=== PATIENT | female | born 1985 | race Two or more races ===

== ENCOUNTER 2023-04-11 22:14 | Outpatient (CLI) | payer OTHER ==
[2023-04-11] MEDS ORDERED: PRENATAL TABLE1 EAC1 (22:36)
[2023-04-11] MEDS ORDERED: ASPIRIN REGIMEN81 MG PO (22:37)
[2023-04-11 23:29] LABS: HEMATOCRIT 28.8 % (36.0-45.00); HEMOGLOBIN 9.7 g/dL (12.0-15.00); MEAN CELL VOLUME 92.9 fL (80.00-100.00); MEAN CORPUSCULAR HEMOGLOBIN 31.2 pg (27.00-32.0); MEAN CORPUSCULAR HGB CONC 33.6 g/dl (32.0-36.0); PLATELET COUNT 216 K/uL (150-450); RED CELL DISTRIBUTION WIDTH 12.6 % (11.5-14.5)
[2023-04-11 23:33] LABS: URINE APPEARANCE Clear; URINE BILIRRUBIN Negative (NEGATIVE); URINE BLOOD Negative; URINE COLOR Yellow; URINE GLUCOSE Negative (NEGATIVE); URINE LEUKOCYTE Negative; URINE NITRATE Negative; URINE PROTEIN Negative (NEGATIVE); URINE UROBILINOGEN 0.2 E.U./dl
[2023-04-11 23:42] LABS: URINE BACTERIA 2.5 uL (0.0-1933); URINE EPITHELIAL CELLS 0.6 uL (0.0-38.8); URINE RBC 0.8 uL (0.0-20.8); URINE WBC 0.7 uL (0.0-23.2)
== END 2023-04-12 03:07 | disposition home or self-care (01) ==
LOC: OBS/DEL 22:14
PROVIDERS: Student in an Organized Health Care Education/Training Program; ATTEND Specialist
DX: O26.892 Other specified pregnancy related conditions, second trimester (principal); R10.2 Pelvic and perineal pain; Z3A.25 25 weeks gestation of pregnancy

== ENCOUNTER 2023-07-02 11:01 | Inpatient (IN) | payer OTHER ==
[~2023-07-02] VITALS: Ht 162.6 cm; Wt 76.7 kg
[~2023-07-02 11:01] MED LIST: ASPIRIN REGIMEN81 MG PO; PRENATAL TABLE1 EAC1
[2023-07-02] MEDS ORDERED: RINGERS SOLUTION,LACTATED 1,000 ML IV SCH (11:15)
[2023-07-02 13:05] LABS: HEMATOCRIT 31.4 % (36.0-45.00); HEMOGLOBIN 10.5 g/dL (12.0-15.00); MEAN CORPUSCULAR HEMOGLOBIN 31.1 pg (27.00-32.0); MEAN CORPUSCULAR HGB CONC 33.5 g/dl (32.0-36.0); PLATELET COUNT 220 K/uL (150-450); RED BLOOD COUNT 3.37 M/uL (4.00-6.00); RED CELL DISTRIBUTION WIDTH 12.8 % (11.5-14.5)
[2023-07-02 13:09] LABS: ALBUMIN 2.6 gm/dL (3.4-5.0); BILIRUBIN TOTAL 0.39 mg/dL (0.3-1.2); CALCIUM 9.1 mg/dL (8.5-10.1); CREATININE SERUM 0.55 mg/dL (0.55-1.02); GFR 125.06; GLOBULINA 3.3 G/DL (2.4-3.5); POTASSIUM 4.02 mEq/L (3.5-5.1); TOTAL PROTEIN 5.9 gm/dL (6.4-8.2)
[2023-07-02 13:14] LABS: URINE APPEARANCE Clear; URINE BILIRRUBIN Negative (NEGATIVE); URINE BLOOD Negative; URINE COLOR Yellow; URINE GLUCOSE Negative (NEGATIVE); URINE LEUKOCYTE Negative; URINE NITRATE Negative; URINE PROTEIN Negative (NEGATIVE); URINE UROBILINOGEN 0.2 E.U./dl
[2023-07-02 13:22] LABS: URINE BACTERIA 1.2 uL (0.0-1933); URINE EPITHELIAL CELLS 0.4 uL (0.0-38.8); URINE RBC 0.2 uL (0.0-20.8); URINE WBC 0.2 uL (0.0-23.2)
[2023-07-02 17:26] LABS: INR < 0.93; PARTIAL THROMBOPLASTIN TIME 28.8 SECONDS (22.0-34.0); PROTHROMBIN TIME 9.3 SECONDS (9.0-11.5)
[2023-07-02] MEDS ORDERED: ACETAMINOPHEN 500 MG GEL..CAP PO SCH (18:00)
[2023-07-02] MEDS ORDERED: ERYTHROMYCIN BASE 3.5 GM OINT...G. OP ONE (20:47)
[2023-07-02] MEDS ORDERED: OXYTOCIN 10 UNITS/ML VIAL ONE (20:47)
[2023-07-02] MEDS ORDERED: CEFAZOLIN SODIUM 1,000 MG VIAL ONE (20:50)
[2023-07-02] MEDS ORDERED: KETOROLAC TROMETHAMINE 60 MG VIAL IM ONE (22:30)
[2023-07-02] MEDS ORDERED: MEPERIDINE HCL/PF 50 MG/ML VIAL IV SCH (22:30)
[2023-07-02] MEDS ORDERED: PROMETHAZINE HCL 50 MG/ML AMPUL IV SCH (22:30)
[2023-07-02] MEDS ORDERED: CEFAZOLIN SODIUM 1,000 MG VIAL IV ONE (23:45)
[2023-07-02] MEDS ORDERED: ERYTHROMYCIN BASE 1 GM TUBE OP ONE (23:45)
[2023-07-02] MEDS ORDERED: OXYTOCIN 10 UNITS/ML VIAL IV ONE (23:45)
[2023-07-02 23:50] LABS: ABG PH 7.299 (7.35-7.45); ABG PO2 38.4 mmHg (80-100); ABG pCO2 42.7 mmHg (35-45); BASE EXCESS -5.7 mmol/l; BICARBONATE 20.5 mmol/l (23-25); SaO2 64.9 %; Tco2 21.8 mmol/l; o2 21 %
[2023-07-03 06:12] LABS: HEMATOCRIT 30.9 % (36.0-45.00); HEMOGLOBIN 10.2 g/dL (12.0-15.00); MEAN CELL VOLUME 93.5 fL (80.00-100.00); MEAN CORPUSCULAR HEMOGLOBIN 30.9 pg (27.00-32.0); MEAN CORPUSCULAR HGB CONC 33.1 g/dl (32.0-36.0); PLATELET COUNT 208 K/uL (150-450); RED CELL DISTRIBUTION WIDTH 13.3 % (11.5-14.5)
[2023-07-03] MEDS ORDERED: OxyCODONE HCL/APAP UD (PERCOCET) PO SCH (07:00)
[2023-07-03] MEDS ORDERED: SIMETHICONE 125 MG CAPSULE PO SCH (09:00)
[2023-07-03] MEDS ORDERED: DOCUSATE CALCIUM 240 MG CAPSULE PO SCH (09:00)
[2023-07-05] MEDS ORDERED: IBU800 MG PO (07:49)
[2023-07-05] MEDS ORDERED: COLACE100 MG PO (07:50)
[2023-07-05] MEDS ORDERED: SIMETHICONE125 M1 PO (07:51)
== END 2023-07-05 13:56 | disposition home or self-care (01) | DRG 784 ==
LOC: OBS/DEL 11:01 → LDR 15:54 → OB/GYN 15:54 → O/R 21:32 → OB/GYN 22:45
PROVIDERS: Obstetrics & Gynecology; ADMIT Specialist; ATTEND Specialist
PROC: 0UB70ZZ Excision of Bilateral Fallopian Tubes, Open Approach (ICD-10-PCS; 2023-07-02)
PROC: BY4FZZZ Ultrasonography of Third Trimester, Single Fetus (ICD-10-PCS; 2023-07-02)
PROC: 4A1HXCZ Monitoring of Products of Conception, Cardiac Rate, External Approach (ICD-10-PCS; 2023-07-02)
PROC: 10D00Z1 Extraction of Products of Conception, Low, Open Approach (ICD-10-PCS; principal; 2023-07-02 20:45)
DX: O36.8130 Decreased fetal movements, third trimester, not applicable or unspecified (principal); O41.03X0 Oligohydramnios, third trimester, not applicable or unspecified; O26.843 Uterine size-date discrepancy, third trimester; Z3A.37 37 weeks gestation of pregnancy; Z37.0 Single live birth; Z20.822 Contact with and (suspected) exposure to COVID-19; Z30.2 Encounter for sterilization